=== PATIENT | female | born 1950 | race Caucasian/White ===

== ENCOUNTER → 2017-11-12 | Outpatient (REF) | payer MEDICARE, OTHER ==
[2017-11-12 12:52] LABS: HEMATOCRIT 37.3 % (36.0-47.0); HEMOGLOBIN 12.1 g/dl (12.0-15.5); MEAN CORPUSCULAR HEMOGLOBIN 31.5 pg (27.0-33.0); MEAN CORPUSCULAR HGB CONC 32.4 g/dl (32.0-36.5); MEAN CORPUSCULAR VOLUME 97.1 fl (80.0-96.0); PLATELET COUNT, AUTOMATED 366 10^3/uL (150-450); RED BLOOD COUNT 3.84 10^6/uL (4.00-5.40); RED CELL DISTRIBUTION WIDTH 13.5 % (11.5-14.5); WHITE BLOOD COUNT 4.5 10^3/uL (4.0-10.0)
[2017-11-12 13:34] LABS: ALBUMIN 3.9 GM/DL (3.2-5.2); ALBUMIN/GLOBULIN RATIO 1.22 (1.00-1.93); ALKALINE PHOSPHATASE 85 U/L (45-117); ALT/SGPT 28 U/L (12-78); ANION GAP 5 MEQ/L (8-16); AST/SGOT 24 U/L (7-37); BILIRUBIN,TOTAL 0.3 MG/DL (0.2-1.0); BLOOD UREA NITROGEN 23 MG/DL (7-18); CALCIUM LEVEL 8.9 MG/DL (8.8-10.2); CARBON DIOXIDE LEVEL 30 MEQ/L (21-32); CHLORIDE LEVEL 104 MEQ/L (98-107); CHOLESTEROL LEVEL 251 MG/DL (<200); CHOLESTEROL RISK RATIO 3.637 (<5); CREATININE FOR GFR 1.11 MG/DL (0.55-1.30); GLOMERULAR FILTRATION RATE 52.4 (>45); GLUCOSE, FASTING 81 MG/DL (70-100); HDL CHOLESTEROL 69 MG/DL (>40); LDL CHOLESTEROL 158 MG/DL (<100); NON-HDL-C 182 MG/DL; POTASSIUM SERUM 4.7 MEQ/L (3.5-5.1); SODIUM LEVEL 139 MEQ/L (136-145); TOTAL PROTEIN 7.1 GM/DL (6.4-8.2); TRIGLYCERIDES LEVEL 120 MG/DL (<150)
== END ==
LOC: M SFHCPLAZ 08:01
DX: D86.0 Sarcoidosis of lung (principal); E78.00 Pure hypercholesterolemia, unspecified
CPT/HCPCS: 80053

== ENCOUNTER → 2018-01-25 | Outpatient (CLI) | payer MEDICARE, OTHER | LOC: M WHC 10:48 | DX: Z12.31 Encounter for screening mammogram for malignant neoplasm of breast (principal); Z78.0 Asymptomatic menopausal state; Z86.018 Personal history of other benign neoplasm; Z92.23 Personal history of estrogen therapy; Z92.29 Personal history of other drug therapy | CPT/HCPCS: 77067 ==

== ENCOUNTER 2018-03-07 06:54 | Day surgery (SDC) | payer MEDICARE, OTHER ==
[~2018-03-07] VITALS: Ht 162.6 cm; Wt 57.6 kg
[~2018-03-07 06:54] MED LIST: ARNU1INH3 PO; BALANCED SALT IRRIGATION SOLUTION 500ML BAG (FOR OR EYE MACHINE) As Ordered ONE; CALC1TAB63 PO; CEFUROXIME 1MG/0.1ML INTRACAMERAL INJ As Ordered ONE; DUOVISC (0.50ML VISCOAT/0.55ML PROVISC) OPHTH KIT As Ordered ONE; ESTR1CRE ITR; ESTR1CRE VA; IBAN150T6 PO; LIDOCAINE 0.75%/EPINEPHRINE 0.025% IN BSS 1ML SYR INTRACAMERAL (OR ONLY) As Ordered ONE; MOME50SP; PATA2.5S OP; POVIDONE-IODINE 5% OPHTH PREP SOL 30ML As Ordered ONE; REST0.057 OU
[2018-03-07] MEDS ORDERED: PROPARACAINE 0.5% OPHTH SOL 15ML OS ONE (07:00)
[2018-03-07] MEDS ORDERED: TROPICAMIDE 1% OPHTH SOLN 2ML OS ONE (07:00)
[2018-03-07] MEDS ORDERED: OFLOXACIN 0.3 % (OCUFLOX) OPTH SOL 5ML OS ONE (07:00)
[2018-03-07] MEDS ORDERED: PHENYLEPHRINE 2.5% OPHTH SOL 2ML OS ONE (07:00)
[2018-03-07] MEDS ORDERED: MIDAZOLAM INJ 2 MG/2 ML VIAL (J2250) As Ordered ONE (07:41)
[2018-03-07] MEDS ORDERED: fentaNYL 100 MCG/2 ML INJECTION (J3010) As Ordered ONE (07:41)
[2018-03-07 09:07] VITALS: BP 133/69
--- NOTE | 2018-03-07 20:29 | RO ---
DATE OF PROCEDURE: 03/07/2018 PREOPERATIVE DIAGNOSES: 1. Visually significant nuclear sclerotic cataract left eye. 2. Astigmatism left eye. POSTOPERATIVE DIAGNOSES: 1. Visually significant nuclear sclerotic cataract left eye. 2. Astigmatism left eye. PROCEDURE: 1. Cataract extraction with use of phacoemulsification, and placement of intraocular lens, AU00T0, 23.5 D, left eye, with use of femtosecond laser and intraoperative aberrometry, left eye 2. Placement of limbal relaxing incisions left eye. SURGEON: Chip Israel DO MARKETING COMMUNITY LIAISON: None. ANESTHESIA: Local with monitored anesthesia care (MAC). COMPLICATIONS: None POSTOPERATIVE CONDITION: Stable INDICATIONS FOR SURGERY: 1. Blurred vision affecting patients activities of daily living. DESCRIPTION OF PROCEDURE: The patient was seen in the preoperative area and properly identified. The correct operative eye was identified and marked. The patient received topical anesthetic, antibiotics, and topical dilating drops. The patient was then transferred to the laser room. The patient was positioned under the laser. A timeout was performed. The laser was applied. A 4.8 mm capsulotomy, fragmentation, and limbal relaxing incisions were created. The patient tolerated the procedure well and was transferred to the operating room. The correct side was re-identified and a timeout was performed. The eye was prepped and draped in a sterile fashion. The eyelids were isolated with Tegaderm tape and the lids were held open with an adjustable speculum. A 1.0 mm paracentesis incision was made. Intraocular preservative free Shugarcaine was then injected into the anterior chamber. Viscoelastic was then injected into the anterior chamber through the paracentesis. Using a 2.4 mm sharp-tipped keratome, the anterior chamber was entered via a temporal clear cornea incision. Utrata forceps were used to removed the free floating capsulotomy. Hydrodissection was performed with BSS on a blunt cannula until the nucleus was able to rotate freely. The crystalline lens was phacoemulsified and aspirated. Irrigation/aspiration was used to remove the cortical material Cohesive viscoelastic was placed into the capsular bag to deepen it. The ORA device was turned on, two sets of measurements were obtained and the implant power was confirmed. The implant was placed into the capsular bag and allowed to unfold. Placement was confirmed by visualizing the anterior capsulorrhexis. Irrigation/aspiration was used to remove the viscoelastic. The clear corneal incision was hydrated with BSS on a blunt cannula. The lens was well positioned. The incisions were then tested for leaks and found to be negative. The eye was then palpated for appropriate pressure and adjusted accordingly with BSS. The eyelid speculum was then carefully removed. A shield was placed over the eye. The patient tolerated the procedure well and was discharge to the recovery unit in a stable condition. KASIA
== END 2018-03-07 09:20 | disposition home or self-care (01) ==
LOC: M SDC 06:54
PROVIDERS: ATTEND Ophthalmology
DX: H25.12 Age-related nuclear cataract, left eye (principal); H52.202 Unspecified astigmatism, left eye; M81.0 Age-related osteoporosis without current pathological fracture; F32.9 Major depressive disorder, single episode, unspecified; D86.9 Sarcoidosis, unspecified; Z79.899 Other long term (current) drug therapy
CPT/HCPCS: 65772; 66984; J2250; J3010; V2632

== ENCOUNTER 2018-06-06 06:48 | Day surgery (SDC) | payer MEDICARE, OTHER ==
[~2018-06-06] VITALS: Ht 162.6 cm; Wt 58.2 kg
[~2018-06-06 06:48] MED LIST changes: +AMOX500C PO
[2018-06-06] MEDS ORDERED: OFLOXACIN 0.3 % (OCUFLOX) OPTH SOL 5ML OD ONE (07:00)
[2018-06-06] MEDS ORDERED: PHENYLEPHRINE 2.5% OPHTH SOL 2ML OD ONE (07:00)
[2018-06-06] MEDS ORDERED: PROPARACAINE 0.5% OPHTH SOL 15ML OD ONE (07:00)
[2018-06-06] MEDS ORDERED: TROPICAMIDE 1% OPHTH SOLN 2ML OD ONE (07:00)
[2018-06-06] MEDS ORDERED: fentaNYL 100 MCG/2 ML INJECTION (J3010) As Ordered ONE (07:37)
[2018-06-06] MEDS ORDERED: MIDAZOLAM INJ 2 MG/2 ML VIAL (J2250) As Ordered ONE (07:37)
[2018-06-06 09:45] VITALS: BP 128/72
--- NOTE | 2018-06-10 17:39 | RO ---
DATE OF PROCEDURE: 06/06/2018 PREOPERATIVE DIAGNOSES: 1. Visually significant nuclear sclerotic cataract right eye. 2. Astigmatism right eye. POSTOPERATIVE DIAGNOSES: 1. Visually significant nuclear sclerotic cataract right eye. 2. Astigmatism right eye. PROCEDURE: 1. Cataract extraction with use of phacoemulsification, and placement of intraocular lens, AU00T0, 22.0 D, right eye, with use of femtosecond laser. 2. Placement of limbal relaxing incisions right eye. SURGEON: Chip Israel DO WATER FABRICATOR OPERATOR: None. ANESTHESIA: Local with monitored anesthesia care (MAC). COMPLICATIONS: None POSTOPERATIVE CONDITION: Stable INDICATIONS FOR SURGERY: 1. Blurred vision affecting patients activities of daily living. DESCRIPTION OF PROCEDURE: The patient was seen in the preoperative area and properly identified. The correct operative eye was identified and marked. The patient received topical anesthetic, antibiotics, and topical dilating drops. The patient was then transferred to the laser room. The patient was positioned under the laser. A timeout was performed. The laser was applied. A 4.8 mm capsulotomy, fragmentation, and limbal relaxing incisions were created. The patient tolerated the procedure well and was transferred to the operating room. The correct side was re-identified and a timeout was performed. The eye was prepped and draped in a sterile fashion. The eyelids were isolated with Tegaderm tape and the lids were held open with an adjustable speculum. A 1.0 mm paracentesis incision was made. Intraocular preservative free Shugarcaine was then injected into the anterior chamber. Viscoelastic was then injected into the anterior chamber through the paracentesis. Using a 2.4 mm sharp-tipped keratome, the anterior chamber was entered via a temporal clear cornea incision. Utrata forceps were used to removed the free floating capsulotomy. Hydrodissection was performed with BSS on a blunt cannula until the nucleus was able to rotate freely. The crystalline lens was phacoemulsified and aspirated. Irrigation/aspiration was used to remove the cortical material Cohesive viscoelastic was placed into the capsular bag to deepen it. The implant was placed into the capsular bag and allowed to unfold. Placement was confirmed by visualizing the anterior capsulorrhexis. Irrigation/aspiration was used to remove the viscoelastic. The clear corneal incision was hydrated with BSS on a blunt cannula. The lens was well positioned. The incisions were then tested for leaks and found to be negative. The eye was then palpated for appropriate pressure and adjusted accordingly with BSS. The eyelid speculum was then carefully removed. A shield was placed over the eye. The patient tolerated the procedure well and was discharge to the recovery unit in a stable condition.
== END 2018-06-06 09:55 | disposition home or self-care (01) ==
LOC: M SDC 06:48
PROVIDERS: ATTEND Ophthalmology
DX: H25.11 Age-related nuclear cataract, right eye (principal); Z79.899 Other long term (current) drug therapy
CPT/HCPCS: 66984; C1713; J2250; J3010

== ENCOUNTER → 2018-06-19 | Outpatient (REF) | payer MEDICARE, OTHER ==
[~2018-06-19] MED LIST changes: -BALANCED SALT IRRIGATION SOLUTION 500ML BAG (FOR OR EYE MACHINE) As Ordered ONE; -CEFUROXIME 1MG/0.1ML INTRACAMERAL INJ As Ordered ONE; -DUOVISC (0.50ML VISCOAT/0.55ML PROVISC) OPHTH KIT As Ordered ONE; -LIDOCAINE 0.75%/EPINEPHRINE 0.025% IN BSS 1ML SYR INTRACAMERAL (OR ONLY) As Ordered ONE; -POVIDONE-IODINE 5% OPHTH PREP SOL 30ML As Ordered ONE
[2018-06-19 10:55] LABS: ALBUMIN 3.9 GM/DL (3.2-5.2); BILIRUBIN,TOTAL 0.4 MG/DL (0.2-1.0); CALCIUM LEVEL 8.8 MG/DL (8.8-10.2); CHOLESTEROL RISK RATIO 3.31 (<5); CREATININE FOR GFR 1.14 MG/DL (0.55-1.30); GLOMERULAR FILTRATION RATE 50.6 (>45); MAGNESIUM LEVEL 2.4 MG/DL (1.8-2.4); TOTAL PROTEIN 7.3 GM/DL (6.4-8.2)
[2018-06-19 11:00] LABS: TOTAL 25(OH) VITAMIN D 31.1 NG/ML (30.0-100.0)
== END ==
LOC: M SFHCPLAZ 07:45
PROVIDERS: ATTEND Internal Medicine
DX: E78.00 Pure hypercholesterolemia, unspecified (principal); R00.2 Palpitations; R03.0 Elevated blood-pressure reading, without diagnosis of hypertension; M81.0 Age-related osteoporosis without current pathological fracture

== ENCOUNTER → 2018-12-25 | Outpatient (REF) | payer MEDICARE, OTHER ==
[2018-12-25 11:17] LABS: ALBUMIN 3.8 GM/DL (3.2-5.2); BILIRUBIN,TOTAL 0.3 MG/DL (0.2-1.0); CALCIUM LEVEL 9.2 MG/DL (8.8-10.2); CHOLESTEROL RISK RATIO 3.106 (<5); CREATININE FOR GFR 1.24 MG/DL (0.55-1.30); GLOMERULAR FILTRATION RATE 45.9 (>45); POTASSIUM SERUM 4.7 MEQ/L (3.5-5.1); THYROID STIMULATING HORMONE 0.718 uIU/ML (0.358-3.740); TOTAL PROTEIN 7.4 GM/DL (6.4-8.2)
== END ==
LOC: M SFHCPLAZ 08:01
PROVIDERS: ATTEND Internal Medicine
DX: R03.0 Elevated blood-pressure reading, without diagnosis of hypertension (principal); E78.00 Pure hypercholesterolemia, unspecified; R00.2 Palpitations

== ENCOUNTER → 2019-03-17 | Outpatient (CLI) | payer MEDICARE, BC ==
--- NOTE | 2019-03-17 15:10 | REP ---
BILATERAL SCREENING DIGITAL MAMMOGRAM WITH 3D TOMOSYNTHESIS: There are no palpable abnormalities or other breast complaints. The the patient states she had a clinical breast examination November,. The [facility] Lifetime Breast Cancer Risk Score is: 3.7% . The the patient had a left breast biopsy in 1984 a right breast biopsy in 1969. Both biopsies were benign. Comparison is 02/17/2013. The breasts are heterogeneously dense, which could obscure small masses. There is no dominant mass, micro calcific cluster or architectural distortion that would indicate malignancy. There are no additional findings on 3D tomosynthesiss. There is no change from the prior study. Impression: BIRADS/ACR category 1 mammogram. Negative. Recommendation: Routine annual screening mammography. Because of the increased breast density, annual adjunctive breast MRI in addition to screening mammography is recommended. These can be performed at alternating six month intervals. This mammogram was interpreted with the aid of a FDA approved computer-aided detection system. A. Negative mammogram reports should not delay biopsy if a dominant or clinically suspicious mass is present. B. Not all breast cancers are identified by mammography or tomosynthesis. C. Adenosis and dense breasts may obscure an underlying neoplasm. Patient letter M1 dense breasts. Electronically Signed by Pedro Pablo Landaverde MD 03/17/2019 03:01 P
== END ==
LOC: M WHC 12:41
PROVIDERS: ATTEND Obstetrics & Gynecology
DX: Z12.31 Encounter for screening mammogram for malignant neoplasm of breast (principal)

== ENCOUNTER → 2019-09-12 | Outpatient (REF) | payer MEDICARE, BC, OTHER ==
[2019-10-11 02:28] LABS: HEMATOCRIT 41.5 % (36.0-47.0); HEMOGLOBIN 13.3 g/dl (12.0-15.5); MEAN CORPUSCULAR HEMOGLOBIN 31.8 pg (27.0-33.0); MEAN CORPUSCULAR VOLUME 99.3 fl (80.0-96.0); PLATELET COUNT, AUTOMATED 399 10^3/uL (150-450); RED BLOOD COUNT 4.18 10^6/uL (4.00-5.40); WHITE BLOOD COUNT 4.9 10^3/uL (4.0-10.0)
[2019-12-01 15:44] LABS: GLUCOSE, FASTING SEE SEPARATE REPORT
== END ==
LOC: M SFHCPLAZ 15:16
PROVIDERS: ATTEND Internal Medicine
DX: E78.00 Pure hypercholesterolemia, unspecified (principal); D86.0 Sarcoidosis of lung

== ENCOUNTER → 2020-03-24 | Outpatient (REF) | payer MEDICARE, BC ==
[2020-03-24 10:11] LABS: BASO % 0.8 % (0.0-1.0); EOS # 0.1 10^3/uL (0.0-0.5); EOS % 2.4 % (0.0-3.0); HEMOGLOBIN 11.9 g/dl (12.0-15.5); LYMPH # 1.1 10^3/uL (1.5-5.0); LYMPH % 22.1 % (24.0-44.0); MEAN CORPUSCULAR HGB CONC 32.2 g/dl (32.0-36.5); MEAN CORPUSCULAR VOLUME 99.5 fl (80.0-96.0); MONO # 0.5 10^3/uL (0.0-0.8); MONO % 9.3 % (0.0-5.0); NEUTROPHILS # 3.2 10^3/uL (1.5-8.5); PLATELET COUNT, AUTOMATED 372 10^3/uL (150-450); RED BLOOD COUNT 3.72 10^6/uL (4.00-5.40); WHITE BLOOD COUNT 4.9 10^3/uL (4.0-10.0)
[2020-03-24 10:33] LABS: ALBUMIN 3.9 GM/DL (3.2-5.2); BILIRUBIN,TOTAL 0.3 MG/DL (0.2-1.0); CALCIUM LEVEL 8.9 MG/DL (8.8-10.2); CHOLESTEROL RISK RATIO 3.573 (<5); CREATININE FOR GFR 1.43 MG/DL (0.55-1.30); GLOMERULAR FILTRATION RATE 38.7 (>45); MAGNESIUM LEVEL 2.4 MG/DL (1.8-2.4); POTASSIUM SERUM 4.9 MEQ/L (3.5-5.1); TOTAL PROTEIN 7.1 GM/DL (6.4-8.2)
== END ==
LOC: M PLALAB 08:06
PROVIDERS: ATTEND Internal Medicine
DX: D86.0 Sarcoidosis of lung (principal); I10 Essential (primary) hypertension; E78.00 Pure hypercholesterolemia, unspecified; Z11.59 Encounter for screening for other viral diseases
CPT/HCPCS: 36415; 80053; 80061; 83735; 85025; G0472

== ENCOUNTER → 2020-05-28 | Outpatient (CLI) | payer MEDICARE, BC ==
[~2020-05-28] MED LIST changes: +CARV20CA PO; +CHLO125TA PO; +CITA10TA5 PO
== END ==
LOC: M LABSMTC 11:31
PROVIDERS: ATTEND Anesthesiology
DX: Z01.812 Encounter for preprocedural laboratory examination (principal); Z20.822 Contact with and (suspected) exposure to COVID-19

== ENCOUNTER 2020-06-02 08:31 | Day surgery (SDC) | payer MEDICARE, BC ==
[~2020-06-02] VITALS: Ht 162.6 cm; Wt 55.8 kg
[~2020-06-02 08:31] MED LIST changes: +NS 1,000 ML IV ONE
[2020-06-02] MEDS ORDERED: LIDOCAINE 2% 100MG/5ML SDV (FOR ANES.) As Ordered ONE (09:27)
[2020-06-02] MEDS ORDERED: propofoL 200 MG/20 ML VIAL As Ordered ONE (09:28)
--- NOTE | 2020-06-02 09:54 | ROOR ---
Patient Name: Fallon Figueroa Procedure Date: 06/02/2020 9:33 AM Date of : 1950 Age: 70 Room: [facility] Gender: Female Note Status: Finalized Procedure: Total Colonoscopy to Cecum Indications: Screening for colorectal malignant neoplasm Providers: Mt Israel MD Referring MD: Cornelio Ansari MD Requesting Provider: Medicines: Monitored Anesthesia Care Complications: No immediate complications. Procedure: Pre-Anesthesia Assessment: - The heart rate, respiratory rate, oxygen saturations, blood pressure, adequacy of pulmonary ventilation, and response to care were monitored throughout the procedure. The Colonoscope was introduced through the anus and advanced to the cecum, identified by appendiceal orifice and ileocecal valve. The colonoscopy was performed without difficulty. The patient tolerated the procedure well. The quality of the bowel preparation was good. Findings: The perianal and digital rectal examinations were normal. Non-bleeding internal hemorrhoids were found during retroflexion. The hemorrhoids were small and Grade I (internal hemorrhoids that do not prolapse). No other significant abnormalities were identified in a careful examination of the remainder of the colon. The exam was otherwise without abnormality on direct and retroflexion views. Impression: - Non-bleeding internal hemorrhoids. - The examination was otherwise normal on direct and retroflexion views. - No specimens collected. - The exam was otherwise normal to the cecum. Recommendation: - Patient has a contact number available for emergencies. The signs and symptoms of potential delayed complications were discussed with the patient. Return to normal activities tomorrow. Written discharge instructions were provided to the patient. - High fiber diet. - Discharge patient to home. - Continue present medications. - Repeat colonoscopy in 10 years for screening purposes. - Return to referring physician. - The findings and recommendations were discussed with the patient. Procedure Code(s): --- Professional --- 14448, Colonoscopy, flexible; diagnostic, including collection of specimen(s) by brushing or washing, when performed (separate procedure) Diagnosis Code(s): --- Professional --- Z12.11, Encounter for screening for malignant neoplasm of colon K64.0, First degree hemorrhoids CPT copyright 2019 [employer]. All rights reserved. The codes documented in this report are preliminary and upon satellite dish installer review may be revised to meet current compliance requirements. Mt Israel MD Mt Israel MD 06/02/2020 9:53:50 AM Electronically signed by Mt Israel MD Number of Addenda: 0 Note Initiated On: 06/02/2020 9:33 AM Estimated Blood Loss: Estimated blood loss: none.
[2020-06-02 10:16] VITALS: BP 146/78
== END 2020-06-02 11:29 | disposition home or self-care (01) ==
LOC: M OPP 08:31
PROVIDERS: ATTEND Internal Medicine Gastroenterology
DX: Z12.11 Encounter for screening for malignant neoplasm of colon (principal); K64.0 First degree hemorrhoids; Z79.899 Other long term (current) drug therapy; Z88.1 Allergy status to other antibiotic agents; Z88.2 Allergy status to sulfonamides; Z88.8 Allergy status to other drugs, medicaments and biological substances

== ENCOUNTER → 2020-07-30 | Outpatient (CLI) | payer MEDICARE, BC ==
[~2020-07-30] MED LIST changes: -NS 1,000 ML IV ONE
--- NOTE | 2020-07-30 11:50 | REPMRS ---
Patient History The patient states she has not had a clinical breast exam in over a year. Patient is postmenopausal. Family history of breast cancer at age 40 in paternal cousin, colorectal cancer at age 50 or over in maternal aunt. Benign excisional biopsy of the left breast, 1984. Benign excisional biopsy of the right breast, 1969. Took estrogen for 21 years. Took unspecified hormones for 13 years. Moderna vaccine 03/04/20 left arm. 04/01/20 left arm. Patient states no breast complaints today. Patient has signed MRS History Sheet. Digital Woman Screen Mammo: July 30, 2020 - Exam #: [id number] Bilateral CC and MLO view(s) were taken. Technologist: RT Maynor Prior study comparison: March 17, 2019, bilateral digital woman screen mammo performed at [facility]. January 25, 2018, bilateral digital woman screen mammo performed at [facility]. FINDINGS: The breast tissue is heterogeneously dense. This may lower the sensitivity of mammography. Screening. Digital screening (2D) mammography was performed bilaterally in the CC and MLO projections. Additionally, breast tomosynthesis (3D mammography) was performed bilaterally in the CC and MLO projections. Todays exam was compared to the prior exam/exams. By history, the patient has no complaints of a palpable breast abnormality or other significant breast complaints. The breasts are unchanged in size and shape. Once again, dense heterogenous fibroglandular elements are seen bilaterally in a stable appearing pattern but to such a degree that the sensitivity of the mammogram in detecting cancer is decreased.There are no reinier-soft tissue densities or spiculated masses. There is no internal architectural distortion. There are no suspicious reinier-calcific clusters. Skin thickening or nipple retraction is not present. IMPRESSION: BI-RADS Category 2- Benign Findings. There is no evidence of malignant alteration of the breasts. Followup examination recommended in one year. The Volpara volumetric breast density category is C, the breasts are extremely dense which lowers the sensitivity of mammography. This mammogram was read with the assistance of [employer]Pal,an FDA approved computer aided detection system for mammography. The lifetime Tyrer-Cuzick score is 3.5 % Due to the density of the breasts or Tyrer Cuzick score of 20% or greater, MRI/whole breast screening ultrasound is warranted. Negative x-ray reports should not delay surgical consultation if a dominant or clinically suspicious mass is present. Not all breast cancers can be identified by mammography. Therefore, we recommend that you continue to perform regular breast self-examination and physical examination and then promptly contact your physician of any concerns or changes. Adenosis and dense breasts may obscure an underlying neoplasm. Assessment: BI-RADS/ACR category 2 mammogram. Benign Findings. Recommendation Routine screening mammogram of both breasts in 1 year. Electronically Signed By: Jonathan Villasenor DO 07/30/20 [id number]
--- NOTE | 2020-07-30 12:08 | DEXAMM ---
INDICATION: AGE RELATED OSTEOPOROSIS W/O CURRENT PATHOLOGICAL FRACTURE. COMPARISON: 12/11/2016 as well as other prior exams. TECHNIQUE: Bone density was measured using dual-energy x-ray absorptiometry (DEXA). FINDINGS: AP SPINE L1-L4 BMD 0.952 g/cm2 Young Adult T-Score -2.0 Age Matched Z-Score -0.3. LT FEMUR, TOTAL BMD 0.687 g/cm2 Young Adult T-Score -2.5 Age Matched Z-Score -1.1. LT NECK BMD 0.665 g/cm2 Young Adult T-Score -2.7 Age Matched Z-Score -1.0. RT FEMUR, TOTAL BMD 0.651 g/cm2 Young Adult T-Score -2.8 Age Matched Z-Score -1.4. RT NECK BMD 0.651 g/cm2 Young Adult T-Score -2.8 Age Matched Z-Score -1.1. IMPRESSION: There is low bone density of the spine. There is osteoporosis of the left hip. There is osteoporosis of the right hip. The density of the spine has decreased 8.7% since the initial exam on 08/12/1999. The density of the spine decreased 0.4% since most recent exam on 12/11/2016. The density of the left hip has decreased 17.1% since initial exam on 08/12/1999. The density of the left hip has decreased 3.0% since most recent exam on 12/11/2016. The density of the right hip has decreased 18.5% since the initial exam on 08/12/1999. The density of the right hip has decreased 2.4% since the most recent exam on 12/11/2016. FOLLOW-UP: Recommendation for the next bone density exam: 2 years. <Electronically signed by Pedro Pablo Kenyon > 07/30/20 0140
== END ==
LOC: M WHC 10:17
PROVIDERS: ATTEND Internal Medicine
DX: Z12.31 Encounter for screening mammogram for malignant neoplasm of breast (principal); Z78.0 Asymptomatic menopausal state; Z80.3 Family history of malignant neoplasm of breast; Z98.890 Other specified postprocedural states; M81.0 Age-related osteoporosis without current pathological fracture

== ENCOUNTER → 2020-09-08 | Outpatient (CLI) | payer MEDICARE, BC ==
[~2020-09-08] MED LIST changes: +ALRE0.5S OU; +FLON1SPR NARES; +OMEP-221 PO; +REST0.05
== END ==
LOC: M LABSMTC 12:00
PROVIDERS: ATTEND Anesthesiology
DX: Z01.812 Encounter for preprocedural laboratory examination (principal); Z20.822 Contact with and (suspected) exposure to COVID-19

== ENCOUNTER 2020-09-13 11:31 | Day surgery (SDC) | payer MEDICARE, BC ==
[~2020-09-13] VITALS: Ht 162.6 cm; Wt 54.4 kg
[~2020-09-13 11:31] MED LIST changes: +NS 1,000 ML IV ONE
[2020-09-13] MEDS ORDERED: propofoL 200 MG/20 ML VIAL As Ordered ONE (12:22)
[2020-09-13] MEDS ORDERED: LIDOCAINE 2% 100MG/5ML SDV (FOR ANES.) As Ordered ONE (12:22)
[2020-09-13] MEDS ORDERED: fentaNYL 100 MCG/2 ML INJECTION (J3010) As Ordered ONE (12:22)
--- NOTE | 2020-09-13 12:50 | ROOR ---
Patient Name: Fallon Figueroa Procedure Date: 09/13/2020 12:35 PM Date of : 1950 Age: 70 Room: [facility] Gender: Female Note Status: Finalized Procedure: Upper Endoscopy + Biopsies Indications: Heartburn, Exclusion of Stover's esophagus Providers: Mt Israel MD Referring MD: Cornelio Ansari MD Requesting Provider: Medicines: Monitored Anesthesia Care Complications: No immediate complications. Procedure: Pre-Anesthesia Assessment: - The heart rate, respiratory rate, oxygen saturations, blood pressure, adequacy of pulmonary ventilation, and response to care were monitored throughout the procedure. The Endoscope was introduced through the mouth, and advanced to the second part of duodenum. The Endoscope was introduced through the and advanced to the. The upper GI endoscopy was accomplished without difficulty. The patient tolerated the procedure well. Findings: The Z-line was regular and was found 40 cm from the incisors. Multiple biopsies were obtained with cold forceps for evaluation to rule out Stover's Esophagus randomly at the gastroesophageal junction. No other significant abnormalities were identified in a careful examination of the stomach. The exam of the duodenum was otherwise normal. Impression: - Z-line regular, 40 cm from the incisors. - Multiple biopsies were obtained at the gastroesophageal junction. - The examination was otherwise normal. Recommendation: - Patient has a contact number available for emergencies. The signs and symptoms of potential delayed complications were discussed with the patient. Return to normal activities tomorrow. Written discharge instructions were provided to the patient. - High fiber diet. - Discharge patient to home. - Follow an antireflux regimen. - Continue present medications. - Await pathology results. - Telephone GI clinic for pathology results in 1 week. - Return to referring physician. - The findings and recommendations were discussed with the patient's family. Procedure Code(s): --- Professional --- 50099, Esophagogastroduodenoscopy, flexible, transoral; with biopsy, single or multiple Diagnosis Code(s): --- Professional --- R12, Heartburn CPT copyright 2019 [employer]. All rights reserved. The codes documented in this report are preliminary and upon operator assistant i cementing review may be revised to meet current compliance requirements. Mt Israel MD Mt Israel MD 09/13/2020 12:50:09 PM Electronically signed by Mt Israel MD Number of Addenda: 0 Note Initiated On: 09/13/2020 12:35 PM Estimated Blood Loss: Estimated blood loss: none.
[2020-09-13 13:15] VITALS: BP 147/80
== END 2020-09-13 13:17 | disposition home or self-care (01) ==
LOC: M OPP 11:31
PROVIDERS: ATTEND Internal Medicine Gastroenterology
DX: R12 Heartburn (principal); K21.9 Gastro-esophageal reflux disease without esophagitis; Z79.899 Other long term (current) drug therapy
CPT/HCPCS: 43239; 88305; J3010

== ENCOUNTER → 2020-09-27 | Outpatient (CLI) | payer MEDICARE, BC ==
[~2020-09-27] MED LIST changes: -NS 1,000 ML IV ONE
[2020-09-27 11:28] LABS: ALBUMIN 4.1 GM/DL (3.2-5.2); BILIRUBIN,TOTAL 0.4 MG/DL (0.2-1.0); CALCIUM LEVEL 9.5 MG/DL (8.8-10.2); CHOLESTEROL RISK RATIO 3.573 (<5); CREATININE FOR GFR 1.55 MG/DL (0.55-1.30); GLOMERULAR FILTRATION RATE 35.3 (>45); MAGNESIUM LEVEL 2.5 MG/DL (1.8-2.4); POTASSIUM SERUM 4.5 MEQ/L (3.5-5.1); TOTAL PROTEIN 7.5 GM/DL (6.4-8.2)
== END ==
LOC: M PLALAB 08:14
PROVIDERS: ATTEND Internal Medicine
DX: I10 Essential (primary) hypertension (principal); E78.00 Pure hypercholesterolemia, unspecified

== ENCOUNTER → 2021-03-14 | Outpatient (REF) | payer MEDICARE, BC ==
[~2021-03-14] MED LIST changes: -CITA10TA5 PO; +CITA10TA7 PO; -MOME50SP; +NASO50SP3; -OMEP-221 PO; +OMEP40CA5 PO
== END ==
LOC: M LAB REF 17:03
PROVIDERS: ATTEND Physician Assistant
DX: D23.71 Other benign neoplasm of skin of right lower limb, including hip (principal)
CPT/HCPCS: 11102; 88305; G0463

== ENCOUNTER → 2021-03-31 | Outpatient (CLI) | payer MEDICARE, BC ==
[2021-03-31 10:13] LABS: BASO % 0.8 % (0.0-1.0); EOS # 0.2 10^3/uL (0.0-0.5); EOS % 2.8 % (0.0-3.0); HEMATOCRIT 36.8 % (36.0-47.0); HEMOGLOBIN 11.8 g/dl (12.0-15.5); LYMPH # 0.8 10^3/uL (1.5-5.0); LYMPH % 15.4 % (24.0-44.0); MEAN CORPUSCULAR HEMOGLOBIN 31.8 pg (27.0-33.0); MEAN CORPUSCULAR HGB CONC 32.1 g/dl (32.0-36.5); MEAN CORPUSCULAR VOLUME 99.2 fl (80.0-96.0); MONO # 0.5 10^3/uL (0.0-0.8); NEUTROPHILS # 3.8 10^3/uL (1.5-8.5); NEUTROPHILS % 71.6 % (36.0-66.0); PLATELET COUNT, AUTOMATED 374 10^3/uL (150-450); RED BLOOD COUNT 3.71 10^6/uL (4.00-5.40); WHITE BLOOD COUNT 5.3 10^3/uL (4.0-10.0)
[2021-03-31 10:59] LABS: ALBUMIN 3.9 GM/DL (3.2-5.2); BILIRUBIN,TOTAL 0.4 MG/DL (0.2-1.0); CHOLESTEROL RISK RATIO 2.561 (<5); CREATININE FOR GFR 1.64 MG/DL (0.55-1.30); MAGNESIUM LEVEL 2.5 MG/DL (1.8-2.4); POTASSIUM SERUM 4.5 MEQ/L (3.5-5.1); THYROID STIMULATING HORMONE 1.01 uIU/ML (0.358-3.740); TOTAL PROTEIN 7.1 GM/DL (6.4-8.2)
== END ==
LOC: M PLALAB 08:33
PROVIDERS: ATTEND Internal Medicine
DX: I10 Essential (primary) hypertension (principal)

== ENCOUNTER → 2021-10-11 | Outpatient (REF) | payer MEDICARE, BC | LOC: M LAB REF 16:18 | PROVIDERS: ATTEND Internal Medicine | DX: Z79.899 Other long term (current) drug therapy (principal) ==

== ENCOUNTER → 2021-10-19 | Outpatient (REF) | payer MEDICARE, BC ==
[2021-10-19 13:53] LABS: PERCENT SATURATION 27.3 % (13.2-45.0)
== END ==
LOC: M LAB REF 12:06
PROVIDERS: ATTEND Internal Medicine
DX: N39.0 Urinary tract infection, site not specified (principal); D64.9 Anemia, unspecified

== ENCOUNTER → 2022-01-16 | Outpatient (CLI) | payer MEDICARE, BC | LOC: M WHC 08:49 | PROVIDERS: ATTEND Internal Medicine | DX: R92.2 Inconclusive mammogram (principal) ==

== ENCOUNTER → 2022-02-21 | Outpatient (CLI) | payer MEDICARE, BC | LOC: M EKG 09:28 | PROVIDERS: ATTEND Internal Medicine | DX: I63.9 Cerebral infarction, unspecified (principal) ==

== ENCOUNTER → 2022-03-02 | Outpatient (CLI) | payer MEDICARE, BC | LOC: M WHC 09:23 | PROVIDERS: ATTEND Internal Medicine | DX: R92.8 Other abnormal and inconclusive findings on diagnostic imaging of breast (principal) | CPT/HCPCS: 76642; 77065; G0279 ==

== ENCOUNTER → 2022-05-29 | Outpatient (REF) | payer MEDICARE, BC | LOC: M LAB REF 12:26 | PROVIDERS: ATTEND Internal Medicine | DX: Z79.899 Other long term (current) drug therapy (principal) ==

== ENCOUNTER → 2022-12-20 | Outpatient (REF) | payer MEDICARE, BC | LOC: M LAB REF 12:05 | PROVIDERS: ATTEND Internal Medicine | DX: Z79.899 Other long term (current) drug therapy (principal) ==

== ENCOUNTER → 2023-01-29 | Outpatient (REF) | payer MEDICARE, BC ==
[2023-01-29 17:50] LABS: BASO % 0.9 % (0.0-1.0); EOS # 0.1 10^3/uL (0.0-0.5); EOS % 1.8 % (0.0-3.0); HEMOGLOBIN 12.2 g/dl (12.0-15.5); LYMPH % 22.9 % (24.0-44.0); MEAN CORPUSCULAR HEMOGLOBIN 32.3 pg (27.0-33.0); MEAN CORPUSCULAR HGB CONC 31.3 g/dl (32.0-36.5); MEAN CORPUSCULAR VOLUME 103.2 fl (80.0-96.0); MONO # 0.3 10^3/uL (0.0-0.8); MONO % 7.7 % (2.0-8.0); NEUTROPHILS # 2.9 10^3/uL (1.5-8.5); NEUTROPHILS % 66.2 % (36.0-66.0); PLATELET COUNT, AUTOMATED 547 10^3/uL (150-450); RED BLOOD COUNT 3.78 10^6/uL (4.00-5.40); WHITE BLOOD COUNT 4.4 10^3/uL (4.0-10.0)
[2023-01-29 18:05] LABS: PERCENT SATURATION 19.7 % (13.2-45.0)
[2023-01-30 15:21] LABS: JAK2 MUTATIONS FOR PATH SENDOU See Pathology Report
== END ==
LOC: M LAB REF 16:29
PROVIDERS: ATTEND Internal Medicine
DX: D75.839 Thrombocytosis, unspecified (principal)

== ENCOUNTER → 2023-03-15 | Outpatient (CLI) | payer MEDICARE, BC | LOC: M WHC 09:48 | PROVIDERS: ATTEND Internal Medicine | DX: M85.88 Other specified disorders of bone density and structure, other site (principal); M85.852 Other specified disorders of bone density and structure, left thigh; M81.0 Age-related osteoporosis without current pathological fracture; Z13.820 Encounter for screening for osteoporosis ==

== ENCOUNTER → 2023-05-15 | Outpatient (CLI) | payer MEDICARE, BC ==
[~2023-05-15] MED LIST changes: +AMLO2.5T3 PO; +ARNU1INH3 INH; -ARNU1INH3 PO; +ASPI-255 PO; +ATOR40TA75 PO; +CARV40CA PO; +ECOT81TA5 PO; +LIDOCAINE 1% MDV 20ML VIAL As Ordered ONE
[2023-05-15 08:35] VITALS: TEMP 97.8
[2023-05-15 09:20] VITALS: BP 177/83; O2SAT 100
[2023-05-15 09:35] LABS: BASO # 0.1 10^3/uL (0.0-0.2); BASO % 0.9 % (0.0-1.0); EOS # 0.2 10^3/uL (0.0-0.5); EOS % 2.9 % (0.0-3.0); HEMATOCRIT 38.5 % (36.0-47.0); HEMOGLOBIN 12.2 g/dl (12.0-15.5); LYMPH % 18.4 % (24.0-44.0); MEAN CORPUSCULAR HEMOGLOBIN 32.1 pg (27.0-33.0); MEAN CORPUSCULAR HGB CONC 31.7 g/dl (32.0-36.5); MEAN CORPUSCULAR VOLUME 101.3 fl (80.0-96.0); MONO # 0.5 10^3/uL (0.0-0.8); MONO % 8.1 % (2.0-8.0); NEUTROPHILS # 3.9 10^3/uL (1.5-8.5); NEUTROPHILS % 69.3 % (36.0-66.0); PLATELET COUNT, AUTOMATED 544 10^3/uL (150-450); WHITE BLOOD COUNT 5.6 10^3/uL (4.0-10.0)
== END ==
LOC: M IRPRO 08:33
PROVIDERS: ATTEND Specialist
DX: D75.839 Thrombocytosis, unspecified (principal); Z79.899 Other long term (current) drug therapy

== ENCOUNTER → 2023-06-22 | Outpatient (REF) | payer MEDICARE, BC ==
[~2023-06-22] MED LIST changes: -LIDOCAINE 1% MDV 20ML VIAL As Ordered ONE
== END ==
LOC: M LAB REF 12:52
PROVIDERS: ATTEND Internal Medicine
DX: Z79.899 Other long term (current) drug therapy (principal)

== ENCOUNTER → 2023-07-11 | Outpatient (REF) | payer MEDICARE, BC | LOC: M LAB REF 13:01 | PROVIDERS: ATTEND Internal Medicine | DX: Z79.899 Other long term (current) drug therapy (principal) ==

== ENCOUNTER → 2023-12-18 | Outpatient (REF) | payer MEDICARE, BC ==
[~2023-12-18] MED LIST changes: +IBAN150T10 PO; -IBAN150T6 PO
[2023-12-18 18:48] LABS: PERCENT SATURATION 17.1 % (13.2-45.0); PHOSPHORUS LEVEL 4.8 MG/DL (2.4-5.1)
[2023-12-18 18:50] LABS: FERRITIN 22.2 NG/ML (7.3-270.7)
== END ==
LOC: M LAB REF 16:18
PROVIDERS: ATTEND Internal Medicine
DX: N39.0 Urinary tract infection, site not specified (principal); D64.9 Anemia, unspecified; M81.0 Age-related osteoporosis without current pathological fracture

== ENCOUNTER → 2024-01-04 | Outpatient (CLI) | payer MEDICARE, BC | LOC: M WHC 07:32 | PROVIDERS: ATTEND Internal Medicine | DX: Z12.31 Encounter for screening mammogram for malignant neoplasm of breast (principal); R92.333 Mammographic heterogeneous density, bilateral breasts ==

== ENCOUNTER → 2024-07-02 | Outpatient (REF) | payer MEDICARE, BC ==
[~2024-07-02] MED LIST changes: +ASPI81CH33 PO
[2024-07-02 15:08] LABS: PERCENT SATURATION 26.8 % (13.2-45.0); PHOSPHORUS LEVEL 4.4 MG/DL (2.4-5.1)
[2024-07-02 15:16] LABS: FERRITIN 29.7 NG/ML (7.3-270.7)
== END ==
LOC: M LAB REF 14:32
PROVIDERS: ATTEND Internal Medicine
DX: M81.0 Age-related osteoporosis without current pathological fracture (principal); E61.1 Iron deficiency

== ENCOUNTER 2024-08-05 14:49 | Inpatient (IN) | payer MEDICARE, BC ==
[~2024-08-05] VITALS: Ht 162.6 cm; Wt 55.7 kg
[~2024-08-05 14:49] MED LIST changes: +COLC0.6T47 PO; +NAPR-837 PO
[2024-08-05 16:54] LABS: BASO # 0.0 10^3/uL (0.0-0.2); BASO % 0.4 % (0.0-1.0); EOS # 0.1 10^3/uL (0.0-0.5); EOS % 0.7 % (0.0-3.0); LYMPH # 0.7 10^3/uL (1.5-5.0); LYMPH % 8.2 % (24.0-44.0); MONO # 0.8 10^3/uL (0.0-0.8); MONO % 9.4 % (2.0-8.0); NEUTROPHILS # 6.8 10^3/uL (1.5-8.5); NEUTROPHILS % 81.1 % (36.0-66.0); PLATELET COUNT, AUTOMATED 714 10^3/uL (150-450)
[2024-08-05 17:00] LABS: ERYTHROCYTE SEDIMENTATION RATE 74 mm/hr (0-30)
[2024-08-05 17:21] LABS: ALT/SGPT 28.0 U/L (7.0-40); AST/SGOT 25.0 U/L (<34); CALCIUM LEVEL 7.8 MG/DL (8.3-10.6); CARBON DIOXIDE LEVEL 23.0 MMOL/L (20-31); CHLORIDE LEVEL 99.0 MMOL/L (98-107); CREATININE FOR GFR 1.38 MG/DL (0.55-1.30); GLOMERULAR FILTRATION RATE 40.4 (>39); POTASSIUM SERUM 5.6 MMOL/L (3.5-5.1); SODIUM LEVEL 131.0 MMOL/L (136-145)
[2024-08-05 17:22] LABS: C REACTIVE PROTEIN QUANTITATIV 16.6 MG/DL (<1.0)
[2024-08-05] MEDS ORDERED: AMLO1TAB24 PO (21:17)
[2024-08-05] MEDS ORDERED: ALBU8.5H INH (21:18)
[2024-08-05] MEDS ORDERED: ATOR80TA59 PO (21:18)
[2024-08-05] MEDS ORDERED: COLC0.6T47 PO (21:18)
[2024-08-05] MEDS ORDERED: ASPI81TA26 PO (21:18)
[2024-08-05] MEDS ORDERED: NAPR-1405 PO (21:18)
[2024-08-05] MEDS ORDERED: CARV20CA PO (21:18)
[2024-08-05] MEDS ORDERED: HOME MED LIST COMPLETE! XX SCH (21:20)
[2024-08-05] MEDS ORDERED: ALBUTEROL 90 MCG/ACT 8 GM HFA INHALER INH PRN (22:20)
[2024-08-05] MEDS ORDERED: MOM 30 ML SUSPENSION UDC PO PRN (22:20)
[2024-08-06] VITALS (8 sets, daily range): BP systolic 112–132; BP diastolic 61–72; TEMP 97.9–99.5; O2SAT 92–96
[2024-08-06] MEDS: KETOROLAC 30 MG/ML 1 ML VIAL IV ONE (00:02)
[2024-08-06] MEDS: ATORVASTATIN 20 MG TAB PO SCH (00:03)
[2024-08-06] MEDS: FAMOTIDINE IV BAG 20 MG in IV 1 EA IV ONE (00:03)
[2024-08-06] MEDS: SODIUM CHLORIDE 0.9% 1000 ML IV ONE (06:07)
[2024-08-06 06:29] LABS: PLATELET COUNT, AUTOMATED 650 10^3/uL (150-450)
[2024-08-06 06:58] LABS: ALT/SGPT 26.0 U/L (7.0-40); AST/SGOT 24.0 U/L (<34); CALCIUM LEVEL 7.6 MG/DL (8.3-10.6); CARBON DIOXIDE LEVEL 23.0 MMOL/L (20-31); CHLORIDE LEVEL 103.0 MMOL/L (98-107); CREATININE FOR GFR 1.27 MG/DL (0.55-1.30); GLOMERULAR FILTRATION RATE 44.7 (>39); MAGNESIUM LEVEL 2.4 MG/DL (1.8-2.4); POTASSIUM SERUM 5.3 MMOL/L (3.5-5.1); SODIUM LEVEL 134.0 MMOL/L (136-145)
[2024-08-06] MEDS ORDERED: HEPARIN SOD 5000 UNITS/ML 1 ML VIAL/SYRINGE SC SCH (09:00)
[2024-08-06] MEDS: COLCHICINE 0.6 MG TABLET PO SCH (09:34)
[2024-08-06] MEDS: amLODIPine 5 MG TAB PO SCH (09:34)
[2024-08-06] MEDS: PANTOPRAZOLE 40MG VIAL IV SCH (09:35)
[2024-08-06] MEDS: DOCUSATE SODIUM 100 MG CAPSULE PO SCH (09:35)
[2024-08-06] MEDS: KETOROLAC 30 MG/ML 1 ML VIAL IV SCH (09:36)
[2024-08-06] MEDS ORDERED: LEVALBUTEROL 1.25 MG 0.5ML CONCENTRATE NEB NEB PRN (10:10)
[2024-08-06] MEDS ORDERED: FLUMAZENIL 0.5 MG/5 ML VIAL As Ordered ONE (10:24)
[2024-08-06] MEDS ORDERED: MIDAZOLAM 5 MG/ML 1 ML VIAL As Ordered ONE (10:24)
[2024-08-06] MEDS ORDERED: LIDOCAINE 1% MDV 20 ML VIAL As Ordered ONE (10:25)
[2024-08-06 11:13] LABS: LDH LACTATE DEHYDROGENASE 160.0 U/L (120-246)
[2024-08-06 12:34] LABS: FREE T4 1.49 NG/DL (0.89-1.76)
[2024-08-06] MEDS: PATIROMER SORBITEX CALCIUM 8.4GM POWDER PACKET PO SCH (13:04)
[2024-08-06 13:08] LABS: PH BODY FLUID 7.563 UNITS (NOT ESTABLISHED); SOURCE, BODY FLUID pH PLEURAL
[2024-08-06 13:25] LABS: APPEARANCE, BODY FLUID HAZY (CLEAR); PLEURAL FL COLOR YELLOW (COLORLESS); SOURCE, BODY FLUID PLEURAL
[2024-08-06 13:27] LABS: IRON (FE) 8.0 UG/DL (50-170); PERCENT SATURATION 4.1 % (13.2-45.0)
[2024-08-06 13:29] LABS: SOURCE, BODY FLUID ALBUMIN PLEURAL
[2024-08-06 13:34] LABS: SOURCE, BODY FLUID GLUCOSE PLEURAL; SOURCE, BODY FLUID TRIG PLEURAL; TRIGLYCERIDE, BODY FLUID 28 MG/DL (NOT ESTABLISHED)
[2024-08-06 13:35] LABS: SOURCE, BODY FLUID TOT PROTEIN PLEURAL
[2024-08-06 13:36] LABS: AMYLASE, BODY FLUID 22 U/L (NOT ESTABLISHED); CHOLESTEROL, BODY FLUID 47 MG/DL (NOT ESTABLISHED); LDH, BODY FLUID 164 U/L (NOT ESTABLISHED); SOURCE, BODY FLUID AMYLASE PLEURAL; SOURCE, BODY FLUID CHOL PLEURAL; SOURCE, BODY FLUID LDH PLEURAL
[2024-08-06] MEDS: LEVALBUTEROL 1.25 MG 0.5ML CONCENTRATE NEB NEB SCH (15:32)
[2024-08-06] MEDS ORDERED: LEVALBUTEROL 1.25 MG 0.5ML CONCENTRATE NEB INH PRN (16:40)
[2024-08-06] MEDS: MORPHINE 4 MG/ML 1 ML VIAL IV PRN (16:54)
[2024-08-06] MEDS ORDERED: ALBUTEROL SULFATE 2.5 MG/0.5 ML INH CONCENTRATE NEB SOLN NEB SCH (20:00)
[2024-08-06] MEDS: HEPARIN SOD 5000 UNITS/ML 1 ML VIAL/SYRINGE SC SCH (21:06)
[2024-08-06] MEDS: ACETAMINOPHEN 325 MG TAB PO PRN (21:08)
[2024-08-07] VITALS (8 sets, daily range): BP systolic 85–140; BP diastolic 46–62; TEMP 98–99.8; O2SAT 92–97
[2024-08-07 00:43] LABS: VITAMIN B12 LEVEL 380.0 PG/ML (211-911)
[2024-08-07 05:43] LABS: BASO # 0.1 10^3/uL (0.0-0.2); BASO % 0.6 % (0.0-1.0); EOS # 0.1 10^3/uL (0.0-0.5); EOS % 1.0 % (0.0-3.0); LYMPH # 0.8 10^3/uL (1.5-5.0); LYMPH % 9.7 % (24.0-44.0); MONO # 0.8 10^3/uL (0.0-0.8); MONO % 10.5 % (2.0-8.0); NEUTROPHILS # 6.3 10^3/uL (1.5-8.5); NEUTROPHILS % 78.1 % (36.0-66.0); PLATELET COUNT, AUTOMATED 707 10^3/uL (150-450)
[2024-08-07 05:48] LABS: RHEUMATOID FACTOR QUANT 12.2 IU/ML (<14)
[2024-08-07 06:02] LABS: CALCIUM LEVEL 7.7 MG/DL (8.3-10.6); CARBON DIOXIDE LEVEL 24.0 MMOL/L (20-31); CHLORIDE LEVEL 102.0 MMOL/L (98-107); CREATININE FOR GFR 1.48 MG/DL (0.55-1.30); GLOMERULAR FILTRATION RATE 37.2 (>39); POTASSIUM SERUM 5.4 MMOL/L (3.5-5.1); SODIUM LEVEL 135.0 MMOL/L (136-145)
[2024-08-07] MEDS: ONDANSETRON 4MG 2ML VIAL IV PRN (17:43)
[2024-08-07] MEDS: COLCHICINE 0.6 MG TABLET PO SCH (20:34)
[2024-08-08] VITALS (21 sets, daily range): BP systolic 104–128; BP diastolic 54–61; TEMP 97.1–98; O2SAT 92–97
[2024-08-08 05:00] LABS: BASO # 0.0 10^3/uL (0.0-0.2); BASO % 0.5 % (0.0-1.0); EOS # 0.2 10^3/uL (0.0-0.5); EOS % 2.2 % (0.0-3.0); LYMPH # 0.9 10^3/uL (1.5-5.0); LYMPH % 11.7 % (24.0-44.0); MONO # 0.9 10^3/uL (0.0-0.8); MONO % 12.1 % (2.0-8.0); NEUTROPHILS # 5.3 10^3/uL (1.5-8.5); NEUTROPHILS % 73.1 % (36.0-66.0); PLATELET COUNT, AUTOMATED 720 10^3/uL (150-450)
[2024-08-08 05:27] LABS: CALCIUM LEVEL 7.5 MG/DL (8.3-10.6); CARBON DIOXIDE LEVEL 26.0 MMOL/L (20-31); CHLORIDE LEVEL 100.0 MMOL/L (98-107); CREATININE FOR GFR 1.49 MG/DL (0.55-1.30); GLOMERULAR FILTRATION RATE 36.9 (>39); POTASSIUM SERUM 5.3 MMOL/L (3.5-5.1); SODIUM LEVEL 134.0 MMOL/L (136-145)
[2024-08-08 15:48] LABS: ANGIOTENSIN 1 CONVERTING ENZYM 32 U/L (9-67)
[2024-08-09] VITALS (9 sets, daily range): BP systolic 100–151; BP diastolic 54–65; TEMP 97–98.5; O2SAT 93–96
[2024-08-09 04:50] LABS: BASO # 0.1 10^3/uL (0.0-0.2); BASO % 0.6 % (0.0-1.0); EOS # 0.2 10^3/uL (0.0-0.5); EOS % 2.3 % (0.0-3.0); LYMPH # 0.7 10^3/uL (1.5-5.0); LYMPH % 7.8 % (24.0-44.0); MONO # 1.0 10^3/uL (0.0-0.8); MONO % 11.6 % (2.0-8.0); NEUTROPHILS # 6.4 10^3/uL (1.5-8.5); NEUTROPHILS % 77.2 % (36.0-66.0)
[2024-08-09 04:51] LABS: PLATELET COUNT, AUTOMATED 857 10^3/uL (150-450)
[2024-08-09 05:05] LABS: CALCIUM LEVEL 7.5 MG/DL (8.3-10.6); CARBON DIOXIDE LEVEL 23.0 MMOL/L (20-31); CHLORIDE LEVEL 103.0 MMOL/L (98-107); CREATININE FOR GFR 1.32 MG/DL (0.55-1.30); GLOMERULAR FILTRATION RATE 42.6 (>39); POTASSIUM SERUM 5.8 MMOL/L (3.5-5.1); SODIUM LEVEL 136.0 MMOL/L (136-145)
[2024-08-09] MEDS ORDERED: hydroCHLOROthiazide 25 MG TAB PO ONE (14:15)
[2024-08-09] MEDS: MAALOX 30 ML SUSP *UDC PO PRN (20:14)
[2024-08-10] VITALS (13 sets, daily range): BP systolic 99–141; BP diastolic 55–80; TEMP 98.1–100.6; O2SAT 90–99
[2024-08-10] MEDS: NS 500 ML IV ONE ×2 (04:43→23:25)
[2024-08-10 04:50] LABS: BASO # 0.0 10^3/uL (0.0-0.2); BASO % 0.4 % (0.0-1.0); EOS # 0.1 10^3/uL (0.0-0.5); EOS % 1.0 % (0.0-3.0); LYMPH # 0.4 10^3/uL (1.5-5.0); LYMPH % 3.7 % (24.0-44.0); MONO # 1.0 10^3/uL (0.0-0.8); MONO % 10.1 % (2.0-8.0); NEUTROPHILS # 8.1 10^3/uL (1.5-8.5); NEUTROPHILS % 84.4 % (36.0-66.0); PLATELET COUNT, AUTOMATED 815 10^3/uL (150-450)
[2024-08-10 05:12] LABS: CALCIUM LEVEL 7.0 MG/DL (8.3-10.6); CARBON DIOXIDE LEVEL 24.0 MMOL/L (20-31); CHLORIDE LEVEL 100.0 MMOL/L (98-107); CREATININE FOR GFR 1.21 MG/DL (0.55-1.30); GLOMERULAR FILTRATION RATE 47.3 (>39); MAGNESIUM LEVEL 2.1 MG/DL (1.8-2.4); PHOSPHORUS LEVEL 2.8 MG/DL (2.4-5.1); POTASSIUM SERUM 4.9 MMOL/L (3.5-5.1); SODIUM LEVEL 134.0 MMOL/L (136-145)
[2024-08-10] MEDS: METOPROLOL TART 25 MG TABLET PO ONE (06:44)
[2024-08-10] MEDS: METOPROLOL TART 12.5 MG PER 1/2 TAB PO SCH (12:03)
[2024-08-11] VITALS (10 sets, daily range): BP systolic 105–141; BP diastolic 55–67; TEMP 97.9–99.3; O2SAT 94–98
[2024-08-11 05:04] LABS: BASO # 0.0 10^3/uL (0.0-0.2); BASO % 0.4 % (0.0-1.0); EOS # 0.1 10^3/uL (0.0-0.5); EOS % 1.5 % (0.0-3.0); LYMPH # 0.7 10^3/uL (1.5-5.0); LYMPH % 9.0 % (24.0-44.0); MONO # 0.8 10^3/uL (0.0-0.8); MONO % 11.5 % (2.0-8.0); NEUTROPHILS # 5.6 10^3/uL (1.5-8.5); NEUTROPHILS % 77.1 % (36.0-66.0); PLATELET COUNT, AUTOMATED 599 10^3/uL (150-450)
[2024-08-11 05:25] LABS: CALCIUM LEVEL 6.5 MG/DL (8.3-10.6); CARBON DIOXIDE LEVEL 24.0 MMOL/L (20-31); CHLORIDE LEVEL 102.0 MMOL/L (98-107); CREATININE FOR GFR 1.28 MG/DL (0.55-1.30); GLOMERULAR FILTRATION RATE 44.2 (>39); POTASSIUM SERUM 4.2 MMOL/L (3.5-5.1); SODIUM LEVEL 137.0 MMOL/L (136-145)
[2024-08-11] MEDS ORDERED: COLCHICINE 0.6 MG TABLET PO SCH (09:00)
[2024-08-11] MEDS: ASPIRIN 325 MG TAB PO SCH (11:27)
[2024-08-11] MEDS: AMIODARONE HCL 150 MG in IV 1 EA IV SCH (11:27)
[2024-08-11] MEDS: METOPROLOL TART 25 MG TABLET PO SCH (11:28)
[2024-08-11] MEDS: AMIODARONE HCL 360 MG in IV 1 EA IV SCH ×2 (11:43→17:47)
[2024-08-11] MEDS: COLCHICINE 0.6 MG TABLET PO SCH (20:08)
[2024-08-12] VITALS (8 sets, daily range): BP systolic 127–162; BP diastolic 64–76; TEMP 97.4–99.1; O2SAT 94–99
[2024-08-12 05:09] LABS: BASO # 0.0 10^3/uL (0.0-0.2); BASO % 0.6 % (0.0-1.0); EOS # 0.1 10^3/uL (0.0-0.5); EOS % 1.2 % (0.0-3.0); LYMPH # 0.6 10^3/uL (1.5-5.0); LYMPH % 8.2 % (24.0-44.0); MONO # 0.7 10^3/uL (0.0-0.8); MONO % 10.4 % (2.0-8.0); NEUTROPHILS # 5.3 10^3/uL (1.5-8.5); NEUTROPHILS % 78.9 % (36.0-66.0); PLATELET COUNT, AUTOMATED 519 10^3/uL (150-450)
[2024-08-12 05:41] LABS: CALCIUM LEVEL 5.8 MG/DL (8.3-10.6); CARBON DIOXIDE LEVEL 21.0 MMOL/L (20-31); CHLORIDE LEVEL 103.0 MMOL/L (98-107); CREATININE FOR GFR 1.14 MG/DL (0.55-1.30); GLOMERULAR FILTRATION RATE 50.8 (>39); POTASSIUM SERUM 3.8 MMOL/L (3.5-5.1); SODIUM LEVEL 137.0 MMOL/L (136-145)
[2024-08-12] MEDS: CALCIUM CHLORIDE 10% 1 GM in D5W 100 ML IV ONE (06:13)
[2024-08-12] MEDS ORDERED: COLCHICINE 0.6 MG TABLET PO SCH (09:00)
[2024-08-12] MEDS: CALCIUM GLUCONATE 1,000 MG in DEXTROSE 5% (D5W) MINI-BAG PLU 100 ML IV ONE ×2 (09:43→20:16)
[2024-08-12] MEDS: METOPROLOL SUCC. 25 MG *XL* TAB PO SCH (09:43)
[2024-08-12] MEDS: AMIODARONE 200 MG TAB PO SCH (18:27)
[2024-08-12] MEDS ORDERED: AMIODARONE 200 MG TAB PO SCH (21:00)
[2024-08-13 04:18] VITALS: BP 157/72; TEMP 98.4; O2SAT 96
[2024-08-13 04:49] LABS: BASO # 0.1 10^3/uL (0.0-0.2); BASO % 0.8 % (0.0-1.0); EOS # 0.1 10^3/uL (0.0-0.5); EOS % 2.1 % (0.0-3.0); LYMPH # 0.4 10^3/uL (1.5-5.0); LYMPH % 7.0 % (24.0-44.0); MONO # 0.7 10^3/uL (0.0-0.8); MONO % 11.8 % (2.0-8.0); NEUTROPHILS # 4.9 10^3/uL (1.5-8.5); NEUTROPHILS % 77.7 % (36.0-66.0); PLATELET COUNT, AUTOMATED 586 10^3/uL (150-450)
[2024-08-13 05:15] LABS: CALCIUM LEVEL 7.3 MG/DL (8.3-10.6); CARBON DIOXIDE LEVEL 23.0 MMOL/L (20-31); CHLORIDE LEVEL 101.0 MMOL/L (98-107); CREATININE FOR GFR 1.23 MG/DL (0.55-1.30); GLOMERULAR FILTRATION RATE 46.4 (>39); POTASSIUM SERUM 3.8 MMOL/L (3.5-5.1); SODIUM LEVEL 137.0 MMOL/L (136-145)
[2024-08-13 08:01] VITALS: BP 149/65; TEMP 97.7; O2SAT 98
[2024-08-13 08:36] VITALS: BP 149/65
[2024-08-13] MEDS ORDERED: METO1TAB32 PO (09:50)
[2024-08-13] MEDS ORDERED: AMIO200T54 PO (09:50)
[2024-08-13] MEDS ORDERED: ASPI-1 PO (09:50)
[2024-08-13] MEDS: LOPERAMIDE 2 MG CAPLET PO ONE (09:52)
== END 2024-08-13 11:40 | disposition home or self-care (01) | DRG 314 ==
LOC: M ED 14:49 → M ED INP 14:50 → M MSPAV 08-06 01:25 → M ICU 08-06 10:34 → OBSVTOIN 08-06 15:14
PROVIDERS: ADMIT Student in an Organized Health Care Education/Training Program; ATTEND Internal Medicine Nephrology
PROC: 0W9B30Z Drainage of Left Pleural Cavity with Drainage Device, Percutaneous Approach (ICD-10-PCS; principal; 2024-08-06 12:00)
PROC: B246ZZZ Ultrasonography of Right and Left Heart (ICD-10-PCS; 2024-08-11)
DX: I30.1 Infective pericarditis (principal); J12.9 Viral pneumonia, unspecified; E87.1 Hypo-osmolality and hyponatremia; D69.3 Immune thrombocytopenic purpura; D47.1 Chronic myeloproliferative disease; J90 Pleural effusion, not elsewhere classified; J98.11 Atelectasis; I48.92 Unspecified atrial flutter; N17.9 Acute kidney failure, unspecified; I12.9 Hypertensive chronic kidney disease with stage 1 through stage 4 chronic kidney disease, or unspecified chronic kidney disease; E78.5 Hyperlipidemia, unspecified; J45.909 Unspecified asthma, uncomplicated; K21.9 Gastro-esophageal reflux disease without esophagitis; H91.93 Unspecified hearing loss, bilateral; F41.9 Anxiety disorder, unspecified; D64.9 Anemia, unspecified; E87.5 Hyperkalemia; N18.9 Chronic kidney disease, unspecified; R19.7 Diarrhea, unspecified; I48.0 Paroxysmal atrial fibrillation; D53.9 Nutritional anemia, unspecified; D47.3 Essential (hemorrhagic) thrombocythemia; E83.51 Hypocalcemia; E87.6 Hypokalemia; J47.9 Bronchiectasis, uncomplicated; K59.00 Constipation, unspecified; Z79.82 Long term (current) use of aspirin; Z79.899 Other long term (current) drug therapy; Z79.1 Long term (current) use of non-steroidal anti-inflammatories (NSAID); Z90.49 Acquired absence of other specified parts of digestive tract; Z88.1 Allergy status to other antibiotic agents; Z88.2 Allergy status to sulfonamides

== ENCOUNTER → 2024-08-19 | Outpatient (REF) | payer MEDICARE, BC ==
[~2024-08-19] MED LIST changes: +ALBU8.5H INH; +AMIO200T54 PO; +AMLO1TAB24 PO; +ASPI-1 PO; +ASPI81TA26 PO; +ATOR80TA59 PO; +METO1TAB32 PO; +NAPR-1405 PO
[2024-08-20 09:31] LABS: IRON (FE) 14.0 UG/DL (50-170); PERCENT SATURATION 6.6 % (13.2-45.0)
[2024-08-20 09:33] LABS: VITAMIN B12 LEVEL 559.0 PG/ML (211-911)
== END ==
LOC: M LAB REF 08:55
PROVIDERS: ATTEND Internal Medicine
DX: D64.9 Anemia, unspecified (principal)

== ENCOUNTER → 2024-09-08 | Outpatient (REF) | payer MEDICARE, BC ==
[2024-09-08 12:58] LABS: PLATELET COUNT, AUTOMATED 632 10^3/uL (150-450)
[2024-09-09 09:09] LABS: ATYPICAL LYMPH 4 % (0-5); BASOPHILS 1 % (0-1); LYMPHOCYTES 10 % (16-44); MONOCYTES 7 % (0-5); NEUTROPHILS 77 % (28-66); PLATELET ESTIMATE INCREASED (NORMAL)
== END ==
LOC: M LAB REF 12:01
PROVIDERS: ATTEND Internal Medicine
DX: D64.9 Anemia, unspecified (principal)

== ENCOUNTER → 2024-10-28 | Outpatient (CLI) | payer MEDICARE, BC ==
[~2024-10-28] MED LIST changes: -COLC0.6T47 PO; +COLC0.6T53 PO; +FOLI400T13; +IRON65TA2 PO
== END ==
LOC: M RAD 13:04
PROVIDERS: ATTEND Internal Medicine Pulmonary Disease
DX: D86.0 Sarcoidosis of lung (principal); J47.9 Bronchiectasis, uncomplicated

== ENCOUNTER → 2024-12-15 | Outpatient (REF) | payer MEDICARE, BC ==
[2024-12-15 14:52] LABS: PTH INTACT 119.0 PG/ML (18.5-88.0)
== END ==
LOC: M LAB REF 12:49
PROVIDERS: ATTEND Internal Medicine
DX: N39.0 Urinary tract infection, site not specified (principal); N18.32 Chronic kidney disease, stage 3b; I48.0 Paroxysmal atrial fibrillation

== ENCOUNTER → 2025-01-06 | Outpatient (CLI) | payer MEDICARE, BC | LOC: M WHC 12:04 | PROVIDERS: ATTEND Internal Medicine | DX: Z12.31 Encounter for screening mammogram for malignant neoplasm of breast (principal); R92.333 Mammographic heterogeneous density, bilateral breasts ==

== ENCOUNTER → 2025-01-13 | Outpatient (REF) | payer MEDICARE, BC | LOC: M LAB REF 17:31 | PROVIDERS: ATTEND Internal Medicine | DX: Z79.899 Other long term (current) drug therapy (principal) ==